=== PATIENT | male | born 1980 | race Two or more races ===

== ENCOUNTER 2020-02-06 15:31 | Emergency (ER) | payer MEDICARE, BC ==
[~2020-02-06] VITALS: Ht 185.4 cm; Wt 118.8 kg
[2020-02-06 15:53] VITALS: BP 148/98
--- NOTE | 2020-02-06 15:58 | NUR ---
ED Nurse Note: Pt went on CT via wheelchair accompanied by tech.
[2020-02-06 16:17] LABS: EOSINOPHILS % (AUTO) 1.2 % (0.0-3.0); HEMATOCRIT 46.2 % (42.0-52.0); HEMOGLOBIN 14.9 G/DL (14.2-18.0); LYMPHOCYTES % (AUTO) 31.3 % (20.0-45.0); MEAN CORPUSCULAR VOLUME 89 FL (80-99); NEUTROPHILS % (AUTO) 57.5 % (45.0-75.0); PLATELET COUNT 230 K/UL (150-450); RED BLOOD COUNT 5.17 M/UL (4.70-6.10); RED CELL DISTRIBUTION WIDTH 12.8 % (11.6-14.8)
[2020-02-06 16:18] LABS: ANION GAP 14 mmol/L (5-15); BLOOD UREA NITROGEN 15 mg/dL (7-18); CALCIUM 9.2 MG/DL (8.5-10.1); CARBON DIOXIDE 20 MMOL/L (21-32); CHLORIDE 108 MMOL/L (98-107); CREATININE 1.1 MG/DL (0.55-1.30); POTASSIUM 3.7 MMOL/L (3.5-5.1); SODIUM 142 MMOL/L (136-145)
--- NOTE | 2020-02-06 16:18 | Diagnostic Imaging Report ---
EXAM: CT Head Without Intravenous Contrast CLINICAL HISTORY: AMS TECHNIQUE: Axial computed tomography images of the head/brain without intravenous contrast. CTDI is 53 mGy and DLP is 1045 mGy-cm. One or more of the following dose reduction techniques were used: automated exposure control, adjustment of the mA and/or kV according to patient size, use of iterative reconstruction technique. COMPARISON: No relevant prior studies available. FINDINGS: Brain: Unremarkable. No hemorrhage. No significant white matter disease. No edema. Ventricles: Unremarkable. No ventriculomegaly. Bones/joints: Unremarkable. No acute fracture. Soft tissues: Unremarkable. Sinuses: Right sphenoid sinus mild air-fluid layer could represent sinusitis. Otherwise unremarkable paranasal sinuses. Mastoid air cells: Unremarkable as visualized. No mastoid effusion. Other findings: Unremarkable study. IMPRESSION: 1. No acute intracranial abnormality. 2. Right sphenoid sinus mild air-fluid layer could represent sinusitis. 3. Unremarkable study.
[2020-02-06 16:23] LABS: ALANINE AMINOTRANSFERASE 28 U/L (12-78); ALBUMIN/GLOBULIN RATIO 1.1 (1.0-2.7); ALKALINE PHOSPHATASE 48 U/L (46-116); ASPARTATE AMINO TRANSFERASE 22 U/L (15-37); BILIRUBIN,TOTAL 0.3 MG/DL (0.2-1.0)
[2020-02-06 16:25] LABS: APPEARANCE,URINE CLEAR; BILIRUBIN, URINE NEGATIVE (NEGATIVE); GLUCOSE, URINE (UA) NEGATIVE (NEGATIVE); KETONES,URINE 3+ (NEGATIVE); LEUKOCYTE ESTERASE ,URINE 1+ (NEGATIVE); NITRITE,URINE NEGATIVE (NEGATIVE); PH,URINE 6 (4.5-8.0); PROTEIN,URINE 2+ (NEGATIVE); UROBILINOGEN,URINE 1 MG/DL (0.0-1.0)
[2020-02-06 16:27] LABS: COLOR,URINE YELLOW
--- NOTE | 2020-02-06 16:56 | Emergency Room Report ---
History of Present Illness General Chief Complaint: Behavioral Complaint Source: EMS Present Illness HPI 39-year-old male with history of bipolar disorder brought in by paramedics from a behavioral center [facility] unknown origin due to behavioral changes. According to paramedics they were told that the patient has been acting different since the dosing of his medication saphris was changed recently. Patient also had fallen on face without any loss of consciousness however there is no reports or facesheet to be presented but with the patient. Denies any chest pain shortness of breath. Denies headache and dizziness at this time. Denies any SI and HI. Denies any drug use, alcohol intake. Allergies: Coded Allergies: No Known Allergies (Unverified , 02/06/20) COVID-19 Screening Contact w/high risk pt: No Recent Travel to affected area: No Experienced COVID-19 symptoms?: No Patient History Past Medical History: see triage record Past Surgical History: none Pertinent Family History: none Immunizations: UTD Reviewed Nursing Documentation: PMH: Agreed; PSxH: Agreed Nursing Documentation-PMH Past Medical History: No History, Except For Review of Systems All Other Systems: negative except mentioned in HPI Physical Exam Vital Signs Date Time Temp Pulse Resp B/P (MAP) Pulse Ox O2 Delivery O2 Flow Rate FiO2 02/06/20 15:25 98.2 100 18 148/98 (115) 98 Room Air Sp02 EP Interpretation: reviewed, normal General Appearance: no apparent distress, alert, GCS 15, non-toxic Head: normocephalic, atraumatic Eyes: bilateral eye normal inspection, bilateral eye PERRL ENT: hearing grossly normal, normal pharynx, no angioedema, normal voice Neck: full range of motion, supple/symm/no masses Respiratory: chest non-tender, lungs clear, normal breath sounds, speaking full sentences Cardiovascular #1: regular rate, rhythm, no edema, no murmur Gastrointestinal: normal bowel sounds, non tender, soft, non-distended, no guarding, no rebound Rectal: deferred Genitourinary: no CVA tenderness Musculoskeletal: back normal Neurologic: alert, motor strength/tone normal, oriented x3, sensory intact, responsive, speech normal Psychiatric: no suicidal/homicidal ideation Skin: abrasion - Healing abrasions on the face Lymphatic: no adenopathy Medical Decision Making PA Attestation All my diagnosis and treatment plans were reviewed ad discussed with my supervising physician Dr. Shoemaker Diagnostic Impression: Primary Impression: Medication side effect Additional Impression: Facial contusion ER Course 39-year-old male with history of bipolar disorder brought in by paramedics from a behavioral center of unknown origin due to behavioral changes. According to paramedics they were told that the patient has been acting different since the dosing of his medication saphris was changed recently. Patient also had fallen on face without any loss of consciousness however there is no reports or facesheet to be presented but with the patient. Denies any chest pain shortness of breath. Denies headache and dizziness at this time. Denies any SI and HI. Denies any drug use, alcohol intake. Ddx considered but are not limited to: generalized anxiety disorder, panic attack, depression with psychotic features, bipolar disorder, drug overdose facial contusion, cerebral hematoma Vital signs: are WNL, pt. is afebrile H&PE are most consistent with: Medication side effect, facial contusion ORDERS: CBC, CMP, UA, tox screen, magnesium, EtOH level, head CT no contrast ED INTERVENTIONS: None required at this time. DISCHARGE: At this time pt. is stable for d/c to home. Will provide printed patient care instructions, and any necessary prescriptions. Care plan and follow up instructions have been discussed with the patient prior to discharge. Patient was sent back to his facility, transport was called in and given a ETA however patient family member came and picked him up. Advised patient return to emergency room worsening symptoms. Patient was put in isolation due to possible COVID due to coming from the facility. CT/MRI/US Diagnostic Results CT/MRI/US Diagnostic Results : Imaging Test Ordered: Head CT no contrast Impression IMPRESSION: 1. No acute intracranial abnormality. 2. Right sphenoid sinus mild air-fluid layer could represent sinusitis. 3. Unremarkable study. Last Vital Signs Date Time Temp Pulse Resp B/P (MAP) Pulse Ox O2 Delivery O2 Flow Rate FiO2 02/06/20 15:53 98.2 18 148/98 98 Room Air 02/06/20 15:53 100 Disposition: HOME, SELF-CARE Condition: Stable Referrals: NON PHYSICIAN (PCP) Patient Instructions: Facial or Scalp Contusion, [id number], Self- Destructive Behavior Additional Instructions: Have psychiatrist readjust the dosing of the medication, at this time patient is in no distress, medically cleared to return to the psychiatric facility. Follow-up with primary doctor. If worsening symptom return to the emergency room Reynaldo Lee Feb 06, 2020 16:56
--- NOTE | 2020-02-06 17:40 | NUR ---
ED Nurse Note: Called Jessica, statistics teacher of [facility] that pt is staying at, informed that pt's ready for discharge. Charge nurse aware.
[2020-02-06 17:50] VITALS: BP 140/90
--- NOTE | 2020-02-06 17:50 | NUR ---
ER DISCHARGE NOTE: Patient is cleared to be discharged per ERPA, pt is aox2, on room air, with stable vital signs. pt's primary child care cook was given dc and prescription instructions, primary child care cook was able to verbalize understanding, pt id band and iv site removed without complications. pt is able to ambulate with steady gait. pt took all belongings.
== END 2020-02-06 17:50 | disposition home or self-care (01) ==
LOC: EDBD 15:31 → EMR 16:21
DX: T50.905A Adverse effect of unspecified drugs, medicaments and biological substances, initial encounter (principal); Y92.9 Unspecified place or not applicable; S00.83XA Contusion of other part of head, initial encounter
CPT/HCPCS: 36415; 70450; 80053; 80307; 81003; 83735; 85025; 99284; G0480